=== PATIENT | female | born 1995 | race Caucasian/White ===

== ENCOUNTER 2024-08-27 11:46 | Emergency (ER) | payer SELFPAY ==
[~2024-08-27] VITALS: Ht 165.1 cm; Wt 77.6 kg
[2024-08-27 11:55] VITALS: BP 137/74; TEMP 98.7
[2024-08-27 12:23] VITALS: O2SAT 99
== END 2024-08-27 12:25 | disposition home or self-care (01) ==
LOC: ER 12:07
DX: S13.4XXA Sprain of ligaments of cervical spine, initial encounter (principal); M54.9 Dorsalgia, unspecified; M79.652 Pain in left thigh; R51.9 Headache, unspecified; M79.10 Myalgia, unspecified site; Z60.2 Problems related to living alone; V23.49XA Other motorcycle driver injured in collision with car, pick-up truck or van in traffic accident, initial encounter; Y93.89 Activity, other specified; Y92.410 Unspecified street and highway as the place of occurrence of the external cause; Y99.8 Other external cause status